=== PATIENT | female | born 1980 | race Two or more races ===

== ENCOUNTER 2024-04-26 20:03 | Emergency (ER) | payer BC, SELFPAY ==
[2024-04-26 20:03] VITALS: BMI 28.3
[2024-04-26 20:50] VITALS: BP 105/77; PULSE 116; RESP 18; TEMP 36.6; O2SAT 99
--- NOTE | 2024-04-26 21:04 | PD.EDRME ---
Rapid Medical Screening Exam RME Arrival date/time: 04/26/24 20:03 43-year-old female presents emergency department complaining of diffuse abdominal pain with vomiting and diarrhea that started at 6 PM today. Chief Complaint: Nausea/Vomiting/Diarrhea Time Seen by Provider: 04/26/24 20:18 Vital signs: Vital Signs Temperature 97.9 F 04/26/24 20:50 Pulse Rate 116 H 04/26/24 20:50 Respiratory Rate 18 04/26/24 20:50 Blood Pressure 105/77 04/26/24 20:50 Pulse Oximetry (%) 99 04/26/24 20:50 Oxygen Delivery Method Room Air 04/26/24 20:50 Vital signs reviewed by provider: Yes
[2024-04-26] MEDS: METOCLOPRAMIDE INJ 5 MG/ML VIAL 2 ML 10 MG IM (21:18)
[2024-04-26] MEDS: KETOROLAC INJ 60 MG/2 ML VIAL 30 MG IM (21:18)
[2024-04-26 21:49] LABS: Basophils % (Auto) 0 % (0-2.5); Eosinophils # (Auto) 0.1 Thou/mm3 (0.0-0.5); Eosinophils % (Auto) 0 % (0-10); Hematocrit 45.5 % (36.0-46.0); Hemoglobin 15.5 g/dL (12.0-16.0); Immature Granulocytes % (Auto) 0 % (0-0); Immature Granulocytes Auto 0.05 Thou/mm3 (0.00-0.00); Lymphocytes # (Auto) 0.7 Thou/mm3 (1.0-4.8); Lymphocytes % (Auto) 4 % (10-50); Mean Corpuscular HGB Conc 34.1 g/dl (31.0-37.0); Mean Corpuscular Volume 88 fL (80-100); Monocytes % (Auto) 5 % (0-12); Neutrophils # (Auto) 17.1 Thou/mm3 (1.8-7.7); Neutrophils % (Auto) 90 % (37-80); Nucleated Red Blood Cell % 0 /100 WBC (0); Platelet Count 389 Thou/mm3 (140-440); RDW Standard Deviation 41.2 fL (36.4-46.3); Red Blood Count 5.16 Miln/mm3 (4.00-5.20); White Blood Count 18.9 Thou/mm3 (3.6-11.0)
--- NOTE | 2024-04-26 21:55 | XR_ITS ---
Examination: CT abdomen and pelvis without contrast. Coronal 3-D reconstructions. Sagittal 2-D reconstructions. Date and time of exam:April 26, 2024 11:12 PM Comparison 12/01/2015 INDICATIONS: Severe abdominal pain nausea vomiting beginning this morning CTDI: vol (mGy): 7.87 DLP: (mGycm): 405 Technique: Axial images of the abdomen have been obtained, 3 mm slice thickness Intravenous contrast material has not been administered. Low dose protocols were performed. One or more of the following dose reduction techniques were used; automated exposure control, adjustment of the mA and/or KV according to patient size, use of iterative reconstruction technique. Findings: No focal liver or splenic lesions No gallstones No pancreatic or adrenal mass Mild renal parenchymal scar formation No renal or ureteral calculi, no hydronephrosis Aorta normal size 12 mm fat-containing umbilical hernia Normal appendix No bowel obstruction or diverticulitis Anteverted uterus Contracted urinary bladder Advanced degenerative disc disease L5-S1 IMPRESSION: No renal or ureteral calculi, no hydronephrosis Normal appendix No bowel obstruction diverticulitis or free air
[2024-04-26 22:06] LABS: HCG,Qualitative Serum Negative
[2024-04-26 22:11] LABS: Alanine Aminotransferase 29 U/L (10-49); Albumin, Serum 5.3 gm/dL (3.5-5.0); Albumin/Globulin Ratio 1.7 (1.2-2.2); Alkaline Phosphatase 73 U/L (46-116); Anion Gap 16 (7-16); Aspartate Amino Transferase 24 U/L (0-34); BUN/Creatinine Ratio 15 Ratio (12-20); Bilirubin,Total 0.9 mg/dL (0.3-1.2); Blood Urea Nitrogen 15 mg/dL (9-23); Calcium 10.6 mg/dL (8.3-10.6); Calcium (Corrected) 10.6 mg/dL (8.5-10.1); Carbon Dioxide 19.4 mMol/L (20.0-31.0); Chloride 104 mMol/L (98-107); Estimated Creatinine Clearance 70.7 mL/min (>60); Globulin 3.2 gm/dL (2.3-3.5); Glucose 154 mg/dL (74-106); Lipase 41 U/L (12-53); Osmolality,Calculated 281 (275-295); Potassium 3.9 mMol/L (3.4-5.1); Sodium 139 mMol/L (136-145); Total Protein 8.5 gm/dL (5.7-8.2); eGFR > 60 See Note
--- NOTE | 2024-04-27 00:09 | EDNOTE_ITS ---
<Statement entered by Kaitlyn Son MD - 04/27/24 04:27> As co-signing physician, I was present and available for consult prn. I concur with the plan and care as documented by the midlevel provider. Nausea/Vomit./Diarrhea-RME/HPI General Chief complaint: Nausea/Vomiting/Diarrhea Stated complaint: ABD PAIN; N/V/D Time Seen by Provider: 04/26/24 20:18 Source: patient Arrival date/time: 04/26/24 20:03 43-year-old female presents emergency department complaining of diffuse abdominal pain with vomiting and diarrhea that started at 6 PM today. Patient denies any fever, chills, cough, sore throat, or any other associated symptom. Mode of arrival: ambulatory Limitations: no limitations RME / HPI RME / HPI Narrative: 04/26/24 20:03 43-year-old female presents emergency department complaining of diffuse abdominal pain with vomiting and diarrhea that started at 6 PM today. Related Data Previous Rx's ?Medication ?Instructions ?Recorded alprazolam 0.25 mg tablet (Xanax) 1 tab FOOD SERVICE LEAD tid/prn anxiety #12 tabs 11/04/16 ibuprofen 800 mg tablet 800 mg PO TID PRN pain #30 tabs 04/02/18 diphenhydramine HCl 25 mg capsule 25 mg PO Q8H PRN allergic symptoms 11/11/22 (Benadryl) #30 caps acetaminophen 500 mg capsule 500 mg PO Q6H PRN pain #30 caps 04/27/24 ondansetron 4 mg disintegrating 4 mg PO Q8H PRN nausea and 04/27/24 tablet vomiting #7 tabs oseltamivir 75 mg capsule (Tamiflu) 75 mg PO BID 5 days #10 caps 04/27/24 Allergies Allergy/AdvReac Type Severity Reaction Status Date / Time No Known Allergies Allergy Verified 04/26/24 20:05 Review of Systems Review of Systems Systems Reviewed: All systems reviewed, normal except as documented Constitutional Constitutional: Reports system reviewed and no additional complaints, except as documented, Denies body ache(s), Denies chills and Denies fever(s) Eyes Eyes: Reports system reviewed and no additional complaints, except as documented and Denies change in vision ENT Ears, Nose, Mouth, and Throat: Reports system reviewed and no additional c omplaints, except as documented, Denies disequilibrium, Denies dizziness, Denies sore throat and Denies vertigo Cardiovascular Cardiovascular: Reports system reviewed and no additional complaints, except as documented, Denies chest pain and Denies dyspnea Respiratory Respiratory: Reports system reviewed and no additional complaints, except as documented, Denies chest congestion, Denies cough and Denies dyspnea Gastrointestinal Gastrointestinal: Reports system reviewed and no additional complaints, except as documented, Reports abdominal pain, Reports diarrhea, Reports nausea and Reports vomiting Musculoskeletal Musculoskeletal: Reports system reviewed and no additional complaints, except as documented, Denies abnormal gait and Denies arthralgias Integumentary/Breasts Skin/Breast: Reports system reviewed and no additional complaints, except as documented, Denies erythema, Denies rash and Denies wounds Neurologic Neurologic: Reports system reviewed and no additional complaints, except as documented, Denies abnormal gait, Denies disequilibrium, Denies dizziness and Denies vertigo Past Medical History Past Medical History NEUROLOGIC: Positive Neurological Disorders and Migraine (1 YR AGO APPROX) CARDIAC: Negative Cardiac Disorders or Congestive Heart Failure RESPIRATORY: Positive Asthma (PRN INHALER); Negative Chronic Obstructive Pulmonary Disease (COPD) GASTROINTESTINAL: Negative Gastrointestinal Disorders, Hepatitis or Colorectal Cancer GENITOURINARY: Negative Genitourinary Disorders, Renal Disease or Prostate Cancer REPRODUCTIVE: Positive Previous Pregnancies; Negative Breast Cancer or Testicular Cancer MUSCULOSKELETAL: Negative Musculoskeletal Disorders or Bone Cancer ENDOCRINE: Negative Endocrine Disorders, Diabetes Mellitus Type 1 or Diabetes Mellitus Type 2 HEMATOLOGIC: Positive Blood Disorders and Anemia PSYCHO/SOCIAL: Positive Anxiety OTHER HISTORY: Positive Hospitalization ( X2) and Chicken Pox ( CHILD); Negative Autoimmune Disease, Blood Transfusions (N/A), Blood Transfusion Reaction (N/A), Anesthesia Reactions (N/A), Organ Transplant (N/A), Chemotherapy (N/A), Radiation Therapy (N/A), Hyperbaric Therapy (N/A), MRSA, VRSA, Vancomycin-Resistant Enterococci, Human Immunodeficiency Virus (HIV), Measles, Mumps, Rubella ([place]izen [place] Measles), Pertussis, Clostridium Difficile, Breast Cancer, Cervical Cancer, Colorectal Cancer, Lung Cancer, Ovarian Cancer, Prostate Cancer or Testicular Cancer Family History FAMILY HISTORY: Positive Family Cancer; Negative Family Psychiatric Problems, Family Respiratory Disorders, Family Cardiac Disorders, Family Gastrointestinal Problems, Family Surgery or Family Anesthesia Reaction Surgical History SURGICAL: Negative Section or Organ Transplant (N/A) Social History SMOKING STATUS: Never smoker ED Exam General Limitations: Present no limitations General appearance: Present alert and in no apparent distress Head Head exam: Present atraumatic Eye Eye exam: Present normal appearance, PERRL and EOMI ENT ENT exam: Present normal exam, normal oropharynx and mucous membranes moist Neck Neck exam: Present normal inspection, full ROM and trachea midline Chest Chest inspection: Present normal inspection and symmetric chest wall rise Respiratory Respiratory exam: Present normal lung sounds bilaterally Cardiovascular Cardiovascular exam: Present regular rate, normal rhythm and normal heart sounds Abdominal Exam Abdominal exam: Present soft and normal bowel sounds; Absent distention, tenderness, rebound or rigidity Extremities Exam Extremities exam: Present normal inspection and full ROM Back Exam Back exam: Present normal inspection and full ROM Neurological Exam Neurological exam: Present alert, oriented X3 and CN II-XII intact Psychiatric Psychiatric exam: Present normal affect and normal mood Skin Skin exam: Present warm, dry, intact and normal color Course Quality Measures none Orders Category Date Time Status Bedside Influenza A&B Antigen Test NOW Care 04/26/24 21:[address] abdomen pelvis wo con Stat Exams 04/26/24 21:55 Completed CBC Stat Lab 04/26/24 21:24 Completed CMP [Comprehensive Metabolic Panel] Stat Lab 04/26/24 21:24 Completed Drug Screen,Urine Stat Lab 04/26/24 23:45 Received HCG,Qualitative Serum Stat Lab 04/26/24 21:24 Completed Lipase Stat Lab 04/26/24 21:24 Completed Urinalysis, C/S if Indicated Stat Lab 04/26/24 23:45 Completed Ketorolac Inj [Toradol Inj] Med 04/26/24 21:08 Discontinued 30 mg IM X1 ONE Metoclopramide Inj [Reglan Inj] Med 04/26/24 21:04 Discontinued 10 mg IM X1 ONE Metoclopramide Inj [Reglan Inj] Med 04/26/24 21:15 Discontinued 10 mg IM X1 ONE Vital Signs Vital signs: Vital Signs Temperature 97.9 F 04/26/24 20:50 Pulse Rate 116 H 04/26/24 20:50 Respiratory Rate 18 04/26/24 20:50 Blood Pressure 105/77 04/26/24 20:50 Pulse Oximetry (%) 99 04/26/24 20:50 Oxygen Delivery Method Room Air 04/26/24 20:50 99% room air within normal limits Nausea/Vomiting/Diarrhea MDM Narrative MDM Narrative:: 43-year-old female presents emergency department complaining of diffuse abdominal pain with vomiting and diarrhea that started at 6 PM today. Patient denies any fever, chills, cough, sore throat, or any other associated symptom. CBC remarkable for leukocytosis 18.9 may be from acute vomiting. CMP was unremarkable for any elevated LFTs or gross electrolyte abnormalities. With normal lipase. hCG negative. Influenza positive Urinalysis was contaminated and patient denies any urinary symptoms. Patient was given Reglan and pain medication and reported significant improvement in symptoms with no more episodes of vomiting and successful p.o. challenge. Patient stable for discharge. Patient data External records reviewed:: [facility] previous records Clinical information provided by:: patient Social determinants that could affect healthcare access:: none Patient has the following chronic illnesses:: See chart How is presenting disease/condition affected by chronic disease/condition?: uneffected by Evaluation data The following diagnostics were reviewed and interpreted by me:: lab results and radiology exam(s) Lab and/or radiology exams considered but not ordered:: Ordered Interpretation Summary: Interpreted by me Medications / Prescriptions Medications / Prescriptions considered but not ordered:: Ordered Medication administrations:: Medication Administration History Discontinued Medications Ketorolac Tromethamine (Ketorolac Inj 60 Mg/2 Ml Vial) 30 mg IM X1 ONE Stop: 04/26/24 21:09 Last Admin: 04/26/24 21:18 Dose: 30 mg Documented By: Metoclopramide HCl (Metoclopramide Inj 5 Mg/Ml Vial 2 Ml) 10 mg IM X1 ONE; Protocol Stop: 04/26/24 21:05 Last Admin: 04/26/24 21:34 Dose: Not Given Documented By: Non-Admin Reason: Cancelled by Provider Metoclopramide HCl (Metoclopramide Inj 5 Mg/Ml Vial 2 Ml) 10 mg IM X1 ONE; Protocol Stop: 04/26/24 21:16 Last Admin: 04/26/24 21:18 Dose: 10 mg Documented By: Given Consultations Consultation(s) initiated? (list below): No Diagnosis Nausea Differential Diagnosis: traveler's diarrhea, food poisoning, gastroenteritis, clostridium difficile infection, drug-induced nausea and vomiting and dehydration Most likely diagnosis given after review of the tests above:: Influenza Admission Indicated Admission indicated?: not indicated Admission Request Was there a request for admission?: No Disposition Plan Disposition Plan: Discharge Discharge Attestation Discharge Attestation: The patient and all family members were given an opportunity to ask questions and understood the discharge instructions. Discharge instructions specifically effects, indications for sooner follow up or return to the emergency department, and the expected course of current diagnosis. Patient condition: Stable Discharge Plan Plan Patient Disposition: HOME (Self Care) Disposition Comment: Stable Prescriptions/Referrals Prescriptions/Med Rec: New acetaminophen 500 mg capsule 500 mg PO Q6H PRN (Reason: pain) Qty: 30 0RF ondansetron 4 mg tablet,disintegrating 4 mg PO Q8H PRN (Reason: nausea and vomiting) Qty: 7 0RF oseltamivir [Tamiflu] 75 mg capsule 75 mg PO BID 5 Days Qty: 10 0RF No Action alprazolam [Xanax] 0.25 MG tablet 1 tab FOOD SERVICE LEAD tid/prn anxiety Qty: 12 0RF ibuprofen 800 mg tablet 800 mg PO TID PRN (Reason: pain) Qty: 30 0RF diphenhydramine HCl [Benadryl] 25 mg capsule 25 mg PO Q8H PRN (Reason: allergic symptoms) Qty: 30 0RF Referrals: Joellen Mata CABLE OPERATOR [Primary Care Provider] - In 1 week Problem List Clinical Impression: Influenza Patient/Caregiver Discharge Instructions Discharge Activity: activity as tolerated Education Materials: ED Diet, [place] (Adult), ED Influenza (Adult) Additional Instructions: Drink plenty of fluids and get plenty of rest. Take Tylenol or ibuprofen as needed for fever or pain. Take Zofran as needed for any nausea or vomiting. Take Tamiflu as prescribed. Follow-up with your primary care provider in 2 to 3 days. Return to emergency department for any worsening symptoms or as needed. Print Language: Frisian Stand Alone Forms: Elli Award Info., Work/School Release, Patient Portal Info Letter PA/YI Supervising Physician PA/YI Supervising Physician: Dr. Son
[2024-04-27 00:16] LABS: Collection Type, Urine Clean Catch
[2024-04-27 00:31] LABS: Bacteria,Urine 1+; Bilirubin,Urine 1+ (Negative); Blood,Urine 2+ (Negative); Color,Urine Drk-Yellow (Lt Yel-Yel); Culture Indicated,Urine Contaminated; Glucose, Urine Trace (Negative); Ketones,Urine 1+ (Negative); Leukocyte Esterase,Urine Positive (Negative); Nitrite,Urine Negative (Negative); PH,Urine 5.5 (5.0-7.0); Protein,Urine 3+ (Neg - Trace); RBC,Urine 31 /hpf (0-3); Specific Gravity,Urine 1.043 (1.001-1.035); Squamous Epithelial Cell,Urine 24 /hpf (0-5); WBC,Urine 61 /hpf (0-5)
[2024-04-27 00:32] LABS: Clarity,Urine Turbid (Clear/Hazy)
[2024-04-27 01:10] LABS: Amphetamine/Methamp Scrn,U Negative (Negative); Barbiturate Screen,Urine Negative (Negative); Benzodiazepines Screen,Urine Negative (Negative); Benzoylecgonine Screen, Ur Negative (Negative); Fentanyl Screen,Urine Negative (Negative); Opiate Screen,Urine Negative (Negative); THC Screen,Urine Negative (Negative)
== END 2024-04-27 01:31 | disposition home or self-care (01) ==
PROVIDERS: Emergency Provider Emergency Medicine; PCP Nurse Practitioner Family
DX: J11.1 Influenza due to unidentified influenza virus with other respiratory manifestations (principal)
CPT/HCPCS: 36415; 74176; 80053; 80307; 81001; 83690; 84703; 85025; 87400; 96372; 99284; J1885; J2765

== ENCOUNTER 2024-07-26 13:22 | Emergency (ER) | payer BC, SELFPAY ==
[2024-07-26 13:55] VITALS: BP 148/92; PULSE 90; RESP 18; TEMP 36.9; O2SAT 96
--- NOTE | 2024-07-26 14:14 | XR_ITS ---
Examination: Pelvic ultrasound, transabdominal, complete Technique: Transabdominal ultrasound of the pelvis performed using grayscale imaging Date and time of exam: July 26, 2024 at 1510 hours INDICATIONS: Vaginal bleeding beginning 9 days ago with blood clots last 5 days FINDINGS: Uterus 9.9 cm fundal uterine urinary fibroid degeneration 2.4 x 2.4 cm, anterior and posterior uterine fundal mass 2.3 x 2.3 cm Endometrial stripe 0.5 cm Right ovary 2.7 cm arterial flow 17 mm follicular cyst Left ovary 2.0 cm arterial flow IMPRESSION: Uterine areas of fibroid degeneration as above, recommend 6 month follow up transvaginal pelvic sonography
--- NOTE | 2024-07-26 14:36 | EDNOTE_ITS ---
ED OB Contraction Preg RMI/HPI General Chief complaint: Vaginal Bleeding Stated complaint: EXTENDED, INTERMITTENT PERIOD X 07/17 Time Seen by Provider: 07/26/24 13:48 Arrival date/time: 07/26/24 13:22 RME / HPI RME / HPI Narrative: DR. SON MAIN ED EVALUATION: 44 year old female presents to the Emergency Department with complaint of vaginal bleeding. She states she had a right arm control implant placed 3 years ago, got it replaced 03/2024; she usually does not get periods on this control. She states she started her period on the - of this month, then again on the and has not stopped since. She reports that since the of this month she has been passing small clots. Related Data Previous Rx's ?Medication ?Instructions ?Recorded alprazolam 0.25 mg tablet (Xanax) 1 tab SOFTBALL UMPIRE tid/prn an xiety #12 tabs 11/04/16 ibuprofen 800 mg tablet 800 mg PO TID PRN pain #30 t abs 04/02/18 diphenhydramine HCl 25 mg capsule 25 mg PO Q8H PRN all ergic symptoms 11/11/22 (Benadryl) #30 caps acetaminophen 500 mg capsule 500 mg PO Q6H PRN pain #3 0 caps 04/27/24 ondansetron 4 mg disintegrating 4 mg PO Q8H PRN nausea and 04/27/24 tablet vomiting #7 tabs tranexamic acid 650 mg tablet 650 mg PO TID #15 tabs 0 07/26/24 Allergies Allergy/AdvReac Type Severity Reaction Status Date / Time No Known Allergies Allergy Verified 07/26/24 13:26 Review of Systems Review of Systems Systems Reviewed: All systems reviewed, normal except as documented Narrative Review of Systems: GEN: No fever, no chills, no weight loss EYES: No discharge, no visual changes, no pain HEENT: No ear pain, no congestion, no sore throat PULM: No shortness of breath, no cough, no congestion CV: No chest pain, no dyspnea on exertion, no palpitations GI: No nausea, no vomiting, no diarrhea, no pain, no constipation : No frequency, no urgency and no dysuria + vaginal bleeding (see HPI) MUSC/SKEL: No joint pain, no back pain SKIN: No rash PSYCH: No hallucinations, no depression HEME/LYMPH: No easy bleeding or bruising tendencies NEURO: No weakness, no headache Past Medical History Past Medical History NEUROLOGIC: Positive Neurological Disorders and Migraine (1 YR AGO APPROX) RESPIRATORY: Positive Asthma (PRN INHALER) REPRODUCTIVE: Positive Previous Pregnancies HEMATOLOGIC: Positive Blood Disorders and Anemia PSYCHO/SOCIAL: Positive Anxiety OTHER HISTORY: Positive Hospitalization ( X2) and Chicken Pox ( CHILD) Family History FAMILY HISTORY: Positive Family Cancer Social History SMOKING STATUS: Never smoker SUBSTANCE USE: does not use ALCOHOL: Never ED Exam Narrative Physical exam: GENERAL APPEARANCE: alert and oriented x 4, well-developed, well-nourished, no acute distress, anxious VITALS: All vitals were reviewed and the pulse ox is 96% on room air, which is normal according to my interpretation. HEENT: Normocephalic, atraumatic; pupils equal, round, reactive to light; EOMI; mucous membranes pink, moist; oropharynx clear NECK: Supple LUNGS: CTABL; no wheezes, no rales, no rhonchi HEART: Regular rate, regular rhythm; normal S1, S2; no murmurs ABDOMEN: non distended; normal BS; soft, no tenderness, no guarding, no rebound; no masses, no organomegaly, no hernia BACK: no CVA tenderness EXTREMITIES: atraumatic; no edema NEUROLOGIC: awake; alert and oriented x4; cranial nerves II-XII grossly intact; no focal sensory or motor deficits PSYCHIATRIC: appropriate mood and affect SKIN: warm, dry, normal color; no rashes Course Quality Measures none Orders Category Date Time Status US pelvic complete Stat Exams 07/26/24 14:14 Completed CBC Stat Lab 07/26/24 14:49 Completed Comprehensive Metabolic Panel Stat Lab 07/26/24 14:49 Completed HCG,Qualitative Serum Stat Lab 07/26/24 14:49 Completed Urinalysis, C/S if Indicated Stat Lab 07/26/24 14:29 Completed Urine Culture Stat Lab 07/26/24 14:29 Completed Vital Signs Vital signs: Vital Signs Temperature 98.4 F 07/26/24 13:55 Pulse Rate 90 07/26/24 13:55 Respiratory Rate 18 07/26/24 13:55 Blood Pressure 148/92 H 07/26/24 13:55 Pulse Oximetry (%) 96 07/26/24 13:55 Oxygen Delivery Method Room Air 07/26/24 13:55 Vaginal Bleeding MDM Narrative MDM Narrative: I, Autumn Leon, am scribing for and in the presence of Dr. Son. Patient data External records reviewed:: [facility] previous records (Reviewed last ED visit dated 04/27/24, discharged with the following: Influenza) Clinical information provided by:: patient Social determinants that could affect healthcare access:: none Patient has the following chronic illnesses:: She states she had a right arm control implant placed 3 years ago, got it replaced 03/2024; she usually does not get periods on this control. No ot her PMHx reported. How is presenting disease/condition affected by chronic disease/condition?: no chronic disease Evaluation data The following diagnostics were reviewed and interpreted by me:: lab results and radiology exam(s) Lab and/or radiology exams considered but not ordered:: none Interpretation Summary: Procedure(s): US pelvic complete Accession Number(s): [id number] cc: Asa Patel MD; Hanna Rose NP; Robin Vu MD~ Examination: Pelvic ultrasound, transabdominal, complete Technique: Transabdominal ultrasound of the pelvis performed using grayscale imaging Date and time of exam: July 26, 2024 at 1510 hours INDICATIONS: Vaginal bleeding beginning 9 days ago with blood clots last 5 days FINDINGS: Uterus 9.9 cm fundal uterine urinary fibroid degeneration 2.4 x 2.4 cm, anterior and posterior uterine fundal mass 2.3 x 2.3 cm Endometrial stripe 0.5 cm Right ovary 2.7 cm arterial flow 17 mm follicular cyst Left ovary 2.0 cm arterial flow IMPRESSION: Uterine areas of fibroid degeneration as above, recommend 6 month follow up transvaginal pelvic sonography Dictated By: Asa Patel MD Medications / Prescriptions Medications or Prescriptions considered but not ordered:: none Medication administrations:: see above if any Consultations Consultation(s) initiated? (list below): Yes Consultation #1 (Physician, Specialty, Details): Discussed test HPI, PMHx, lab, radiology results and/or management with Dr. Schwarz. Following his recommendations. Time: 16:51 Diagnosis Vaginal Bleeding Differential Diagnosis: dysfunctional uterine bleeding and vaginal bleeding Most likely diagnosis given after review of the tests above:: Degeneration of uterine fibroid Admission Indicated Admission indicated?: not indicated Admission Request Was there a request for admission?: No Disposition Plan Disposition Plan: Discharge Discharge Attestation Discharge Attestation: The patient and all family members were given an opportunity to ask questions and understood the discharge instructions. Discharge instructions specifically effects, indications for sooner follow up or return to the emergency department, and the expected course of current diagnosis. Patient condition: Stable Discharge Plan Plan Patient Disposition: HOME (Self Care) Prescriptions/Referrals Prescriptions/Med Rec: New tranexamic acid 650 mg tablet 650 mg PO TID Qty: 15 0RF No Action alprazolam [Xanax] 0.25 MG tablet 1 tab SOFTBALL UMPIRE tid/prn anxiety Qty: 12 0RF ibuprofen 800 mg tablet 800 mg PO TID PRN (Reason: pain) Qty: 30 0RF acetaminophen 500 mg capsule 500 mg PO Q6H PRN (Reason: pain) Qty: 30 0RF ondansetron 4 mg tablet,disintegrating 4 mg PO Q8H PRN (Reason: nausea and vomiting) Qty: 7 0RF diphenhydramine HCl [Benadryl] 25 mg capsule 25 mg PO Q8H PRN (Reason: allergic symptoms) Qty: 30 0RF Problem List Clinical Impression: Degeneration of uterine fibroid Patient/Caregiver Discharge Instructions Education Materials: What Are Fibroids? Print Language: Tajik Stand Alone Forms: Elli Award Info., Patient Portal Info Letter
[2024-07-26 15:17] LABS: Collection Type, Urine Voided
[2024-07-26 15:22] LABS: Basophils % (Auto) 0 % (0-2.5); Eosinophils % (Auto) 0 % (0-10); Hematocrit 40.8 % (36.0-46.0); Hemoglobin 13.7 g/dL (12.0-16.0); Immature Granulocytes % (Auto) 0 % (0-0); Immature Granulocytes Auto 0.03 Thou/mm3 (0.00-0.00); Lymphocytes % (Auto) 9 % (10-50); Mean Corpuscular HGB Conc 33.6 g/dl (31.0-37.0); Mean Corpuscular Hemoglobin 30.2 pg (25.0-35.0); Mean Corpuscular Volume 90 fL (80-100); Monocytes # (Auto) 0.6 Thou/mm3 (0.0-0.8); Monocytes % (Auto) 6 % (0-12); Neutrophils # (Auto) 9.3 Thou/mm3 (1.8-7.7); Neutrophils % (Auto) 85 % (37-80); Nucleated Red Blood Cell % 0 /100 WBC (0); Platelet Count 336 Thou/mm3 (140-440); Red Blood Count 4.54 Miln/mm3 (4.00-5.20); White Blood Count 10.9 Thou/mm3 (3.6-11.0)
[2024-07-26 15:29] LABS: Bacteria,Urine 1+; Bilirubin,Urine Negative (Negative); Blood,Urine 3+ (Negative); Clarity,Urine Clear (Clear/Hazy); Color,Urine Colorless (Lt Yel-Yel); Glucose, Urine Negative (Negative); Ketones,Urine Negative (Negative); Leukocyte Esterase,Urine Negative (Negative); Nitrite,Urine Negative (Negative); PH,Urine 6.5 (5.0-7.0); Protein,Urine Negative (Neg - Trace); RBC,Urine 503 /hpf (0-3); Specific Gravity,Urine 1.012 (1.001-1.035); Squamous Epithelial Cell,Urine 1 /hpf (0-5); Urobilinogen,Urine Negative mg/dL (0.0-1.0); WBC,Urine 12 /hpf (0-5)
[2024-07-26 15:33] LABS: HCG,Qualitative Serum Negative
[2024-07-26 15:36] LABS: Alanine Aminotransferase 21 U/L (10-49); Albumin, Serum 4.8 gm/dL (3.5-5.0); Albumin/Globulin Ratio 1.7 (1.2-2.2); Alkaline Phosphatase 72 U/L (46-116); Anion Gap 7 (7-16); Aspartate Amino Transferase 19 U/L (0-34); BUN/Creatinine Ratio 11 Ratio (12-20); Bilirubin,Total 0.6 mg/dL (0.3-1.2); Blood Urea Nitrogen 9 mg/dL (9-23); Calcium 9.5 mg/dL (8.3-10.6); Calcium (Corrected) 9.5 mg/dL (8.5-10.1); Chloride 108 mMol/L (98-107); Creatinine (Component) 0.8 mg/dL (0.6-1.3); Globulin 2.8 gm/dL (2.3-3.5); Glucose 121 mg/dL (74-106); Osmolality,Calculated 279 (275-295); Potassium 4.3 mMol/L (3.4-5.1); Sodium 140 mMol/L (136-145); Total Protein 7.6 gm/dL (5.7-8.2); eGFR > 60 See Note
[2024-07-26 15:37] LABS: Culture Indicated,Urine Yes
--- NOTE | 2024-07-26 15:42 | PC.NURSE ---
PT IN TODAY FOR VAGINAL BLEEDING. PT STATES THAT SHE HAD AN CONTRACEPTIVE IMPLANT THAT HAS BEEN REPLACED. PT HAS HAD HEAVY CLOTTING. DR. RICARDO AT BEDSIDE TALKING TO PT.
[2024-07-26 16:07] VITALS: BP 140/90; PULSE 100; RESP 18; TEMP 36.8; O2SAT 100
[2024-07-26 17:03] VITALS: BP 140/90; PULSE 95; O2SAT 100
== END 2024-07-26 17:04 | disposition home or self-care (01) ==
PROVIDERS: Nurse Practitioner Family; Emergency Provider Emergency Medicine; PCP Family Medicine
DX: D25.9 Leiomyoma of uterus, unspecified (principal)
CPT/HCPCS: 36415; 76856; 80053; 81001; 84703; 85025; 87086; 99284

== ENCOUNTER → 2024-10-22 | Outpatient (CLI) | payer BC, SELFPAY | END | disposition home or self-care (01) | LOC: SLDO 14:33 | PROVIDERS: PCP Student in an Organized Health Care Education/Training Program; Referring Provider Student in an Organized Health Care Education/Training Program; Visit Provider Student in an Organized Health Care Education/Training Program | DX: N39.0 Urinary tract infection, site not specified (principal) | CPT/HCPCS: 87086 ==

== ENCOUNTER → 2024-11-18 | Outpatient (CLI) | payer BC, SELFPAY | END | disposition home or self-care (01) | LOC: SLDO 15:46 | PROVIDERS: PCP Student in an Organized Health Care Education/Training Program; Referring Provider Student in an Organized Health Care Education/Training Program; Visit Provider Student in an Organized Health Care Education/Training Program | DX: N39.0 Urinary tract infection, site not specified (principal) | CPT/HCPCS: 87086 ==

== ENCOUNTER → 2024-12-24 | Outpatient (BNVA) | payer BC, SELFPAY | END | disposition home or self-care (01) | PROVIDERS: PCP Nurse Practitioner Family; Referring Provider Nurse Practitioner Family; Visit Provider Urology | DX: R31.29 Other microscopic hematuria (principal) | CPT/HCPCS: 81003; 99212; G0463 ==

== ENCOUNTER → 2024-12-25 | Outpatient (CLI) | payer BC, SELFPAY ==
[2024-12-26 09:14] LABS: BVAG Candida Negative (Negative); Bacterial Vaginosis Markers Negative (Negative); Candida glabrata Negative (Negative); Candida krusei PCR Negative (Negative); Trichomonas Negative (Negative)
== END | disposition home or self-care (01) ==
LOC: SLDO 14:26
PROVIDERS: Referring Provider Specialist; Visit Provider Specialist
DX: B37.89 Other sites of candidiasis (principal); N76.0 Acute vaginitis; A59.01 Trichomonal vulvovaginitis
CPT/HCPCS: 81514

== ENCOUNTER → 2025-01-05 | Outpatient (CLI) | payer BC, SELFPAY ==
--- NOTE | 2025-01-05 09:00 | XR_ITS ---
Examination: Breast ultrasound complete, bilateral Date and time of exam: January 05, 2025, 0859 hours INDICATIONS: Left breast pain episode beginning 2 months ago Technique: Real-time grayscale ultrasonographic imaging bilateral breasts, including all 4 quadrants as well as nipple retroareolar and axillary regions. Findings: Sonographic images right breast 2:00 cyst 9 x 8 mm No solid nodules Sonographic images left breast. No cystic or solid masses IMPRESSION: BI-RADS Category 2: Benign findings
--- NOTE | 2025-01-05 10:00 | XR_ITS ---
Examination: Screening digital mammography, bilateral Computer aided detection 3-D breast Tomosynthesis, bilateral Date and time of exam: November 05, 2024, 0911 hours, no priors Indication: Screening Technique: Nonmagnified MLO, CC views of the breasts to been obtained, reconstructed from 3-D Tomosynthesis images. R2 computer aided detection program utilized for evaluation of suspicious masses and/or abnormal calcifications. 3-D Tomosynthesis images obtained. Findings: The breasts are heterogeneously dense, which may obscure small masses 10 mm nodule indistinct margins upper inner right breast Impression: BI-RADS Category 0: Incomplete: Need additional imaging evaluation Recommend follow-up spot tomographic views of the nodule described above as well as bilateral breast sonography to complete the work-up
== END | disposition home or self-care (01) ==
PROVIDERS: PCP Nurse Practitioner Family; Referring Provider Nurse Practitioner Family; Visit Provider Nurse Practitioner Family
DX: Z12.31 Encounter for screening mammogram for malignant neoplasm of breast (principal); R92.8 Other abnormal and inconclusive findings on diagnostic imaging of breast; R92.323 Mammographic fibroglandular density, bilateral breasts
CPT/HCPCS: 76641; 77063; 77067

== ENCOUNTER → 2025-02-18 | Outpatient (CLI) | payer BC, SELFPAY ==
--- NOTE | 2025-02-18 06:50 | XR_ITS ---
Examination: Diagnostic digital mammography, unilateral, right Computer aided detection 3-D breast Tomosynthesis, unilateral Date and time of exam: February 18, 2025, 0657 hours INDICATIONS: Mammogram January 06, 2000 2510 mm nodule indistinct margins upper inner right breast Technique: Nonmagnified MLO, CC views of the right breast have been obtained, reconstructed from 3-D Tomosynthesis images. R2 computer aided detection program utilized for evaluation of suspicious masses and/or abnormal calcifications. 3-D Tomosynthesis images obtained. Findings: The breast is heterogeneously dense, which may obscure small masses Focal asymmetry remains in the upper right breast on the spot compression MLO view, probably benign Impression: BI-RADS category 3: Probably benign findings 1 additional 6-month right mammogram follow-up is needed
--- NOTE | 2025-02-18 07:05 | XR_ITS ---
Examination: Breast ultrasound, unilateral, right Date and time of exam: February 18, 2025, 0711 hours INDICATIONS: Mammogram January 06, 2000 2510 mm nodule indistinct margins upper inner right breast Technique: Real-time bain scale ultrasonographic imaging performed right breast including all 4 quadrants as well as nipple retroareolar and axillary region. Findings: 3:00 nodule lobular margins 6 x 5 mm IMPRESSION: BI-RADS Category 3: Probably benign findings Recommend 1 additional 6-month right breast mammogram follow-up to document stability of nodule described above
== END | disposition home or self-care (01) ==
LOC: CDIM 06:44
PROVIDERS: PCP Family Medicine; Referring Provider Nurse Practitioner Family; Visit Provider Nurse Practitioner Family
DX: R92.331 Mammographic heterogeneous density, right breast (principal); N63.15 Unspecified lump in the right breast, overlapping quadrants
CPT/HCPCS: 76641; 77061; 77065; G0279